=== PATIENT | female | born 2000 | race African-American/Black ===

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

== ENCOUNTER 2018-08-19 11:12 | Emergency (ER) | payer OTHER ==
[2018-08-19] MEDS ORDERED: predniSONE 20 MG TAB ONE (11:23)
== END 2018-08-19 11:30 | disposition home or self-care (01) ==
LOC: BURERS 11:12
DX: J45.901 Unspecified asthma with (acute) exacerbation (principal); Z79.51 Long term (current) use of inhaled steroids
CPT/HCPCS: 99284; J7512